=== PATIENT | male | born 1945 | race Caucasian/White ===

== ENCOUNTER 2019-05-15 06:26 | Day surgery (SDC) | payer OTHER ==
--- OUTSIDE RECORDS SUMMARY | 2019-05-15 06:29 | XMS REPORT | Clinical Summary ---
:1945 Author Organization [facility] Address [address] [place] [address] Care Team Providers Name Role Phone Asked, No Pcp Primary Care Provider Unavailable Allergies Active Allergy Reactions Severity Noted Date Comments Adhesive Tape-Silicones Other (See Comments) 01/05/2018 Lisinopril 03/10/2018 Coughing fits Medications Medication Sig Dispensed Refills Start Date End Date Status clopidogrel (PLAVIX) Take 75 mg by 0 Active 75 mg tablet mouth nightly. levothyroxine Take 50 mcg 0 Active (SYNTHROID, LEVOXYL) by mouth 50 mcg tablet every morning. allopurinol Take 300 mg 0 Active (ZYLOPRIM) 300 MG by mouth tablet nightly. citalopram (CeleXA) Take 20 mg by 0 Active 20 MG tablet mouth nightly. UBIDECARENONE Take 200 mg 0 Active (COQ-10 ORAL) by mouth nightly. isosorbide Take 30 mg by 0 Active mononitrate (IMDUR) mouth 30 MG 24 hr tablet nightly. ezetimibe (ZETIA) 10 Take 10 mg by 0 Active mg tablet mouth daily. niacin 1,000 mg Take 1 tablet 0 Active tablet extended by mouth 2 release (two) times a day. furosemide (LASIX) Take 20 mg by 0 Active 20 mg tablet mouth daily. potassium chloride Take 10 mEq 0 Active (K-DUR,KLOR-CON) 10 by mouth MEQ CR tablet daily. metFORMIN Take 250 mg 0 Active (GLUCOPHAGE) 500 mg by mouth 2 tablet (two) times a day with meals. carvedilol (COREG) Take 1 tablet 60 tablet 11 03/20/2018 03/20/2019 12.5 MG tablet (12.5 mg total) by mouth 2 (two) times a day with meals. aspirin (ECOTRIN) 81 Take 1 tablet 30 tablet 11 03/21/2018 03/21/2019 MG enteric coated (81 mg total) tablet by mouth daily. atorvastatin Take 1 tablet 30 tablet 11 03/20/2018 03/20/2019 (LIPITOR) 40 MG (40 mg total) tablet by mouth nightly. minocycline Take 1 6 capsule 0 07/27/2018 07/27/2018 Discontinued (MINOCIN,DYNACIN) capsule (100 100 MG capsule mg total) by mouth 2 (two) times a day for 6 doses. minocycline Take 1 6 capsule 0 07/27/2018 07/30/2018 (MINOCIN,DYNACIN) capsule (100 100 MG capsule mg total) by mouth 2 (two) times a day for 6 doses. Active Problems Problem Noted Date AICD lead displacement 07/26/2018 Cardiac pacemaker in situ 03/15/2018 S/P CABG x 2 03/14/2018 Thrombocytopenia 03/14/2018 Postoperative anemia due to acute blood loss 03/14/2018 Acute postoperative pulmonary insufficiency 03/14/2018 Stage 3 chronic kidney disease 03/14/2018 Panda second degree AV block 03/14/2018 Coronary artery disease 03/13/2018 SSS (sick sinus syndrome) 01/05/2018 Encounters Date Type Specialty Care Team Description 07/26/2018 Anesthesia Event Procedural Lory Bertrand Cardiology 07/26/2018 Surgery Procedural Vy Olivo Insert electrode Cardiology MD Taylor pacemaker or defibrillator 07/26/2018 - Hospital Encounter Cardiology Vy Olivo Displacement of 07/27/2018 MD Taylor implantable cardioverter-defibril lator (ICD) lead, initial encounter 07/18/2018 Hospital Encounter Radiology Vy Olivo Jr., MD of cardiac electrode, subsequent encounter 07/18/2018 Transcribe Orders Access Vy Olivo Jr., MD of cardiac electrode, subsequent encounter (Primary Dx) after 05/14/2018 Social History Tobacco Use Types Packs/Day Years Used Date Former Smoker Smokeless Tobacco: Former User Alcohol Use Drinks/Week oz/Week Comments Yes occassionally Sex Assigned at Date Recorded Not on file Job Start Date Occupation Industry Not on file Not on file Not on file Travel History Travel Start Travel End No recent travel history available. Last Filed Vital Signs Vital Sign Reading Time Taken Blood Pressure 127/62 07/27/2018 7:39 AM CDT Pulse 62 07/27/2018 7:39 AM CDT Temperature 36.9 C (98.4 F) 07/27/2018 7:39 AM CDT Respiratory Rate 20 07/27/2018 7:39 AM CDT Oxygen Saturation 94% 07/27/2018 7:39 AM CDT Inhaled Oxygen Concentration - - Weight 120 kg (265 lb 6 oz) 07/26/2018 11:54 AM CDT Height 177.8 cm (5' 10") 07/26/2018 11:54 AM CDT Body Mass Index 38.08 07/26/2018 11:54 AM CDT Plan of Treatment Health Maintenance Due Date Last Done Comments COLONOSCOPY SCREENING 1993 SHINGLES VACCINES (#1) 1993 65+ PNEUMOCOCCAL VACCINE (2 of 2 - PPSV23) 2008 05/31/2017 INFLUENZA VACCINE 05/31/2019 Implants Implanted Type Area Animation Artist Device Shelf Model / Identifier Expiration Serial / Date Lot Daniela Xt Dr Mri - [id number] Cardiac Pacemaker N/A: [facility] [id number] / Implanted: Qty: 1 on 01/05/2018 by Vy Olivo Jr., MD Generators N/A [employer] / Lead, Pacemaker Atrial And Ventricular 58 Centimeter Capsure Fix Novus System - [id number] Cardiac Pacing N/A: [employer] [facility] 08/23/2019 [id number] / Implanted: 01/05/2018 (Quantity not on file) Leads or N/A USA[employer]. [id number] / Electrodes or [id number] Accessories Lead, Pacemaker Bipolar Fix Forming Atrial And Ventricular Steroid Eluting 52 Centimeter Capsure Fix Novus - [id number] Cardiac Pacing N/A: [facility] 10/27/2019 [id number] / Implanted: 01/05/2018 (Quantity not on file) Leads or N/A [employer] [id number] / Electrodes or [id number] Accessories Lead, Pacemaker Bipolar Fix Forming Atrial And Ventricular Steroid Eluting 52 Centimeter Capsure Fix Novus - [id number] Cardiac Pacing N/A: [employer] [facility] 06/09/2020 [id number] / Implanted: 07/26/2018 (Quantity not on file) Leads or N/A USA[employer]. [id number] / Electrodes or [id number] Accessories Lead Pace Immanuel Mycrdl Unipol Tmpry Streamline - [id number] Cardiovascular N/A : [employer] [place] - [id number] / Implanted: 03/13/2018 (Quantity not on file) Implants N/A CARDIAC SRGRY / Envelope Pcemkr Antbactl Fully Resorb Aigisrxr - [id number] Cardiovascular N/A: [employer] INC [id number] / Implanted: 07/26/2018 (Quantity not on file) Implants N/A / 19fr Channel Drain, Round, Silicone, Hubless, Fluted Drainage, Other N/A: [employer] 08/30/2022 [id number] / Implanted: Qty: 1 on 03/13/2018 by Sai Romero MD N/A / [id number] Clip Ligtng Weck Hemoclip Plus W/ Tape Ti Med - [id number] Medical Clips for N/A: TELEFLEX [id number] / Implanted: 03/13/2018 (Quantity not on file) Internal Use N/A MEDICAL / Clip Ligtng Weck Hemoclip Plus W/ Tape Ti Lg - [id number] Medical Clips for N /A: TELEFLEX [id number] / Implanted: 03/13/2018 (Quantity not on file) Internal Use N/A MEDICAL / [place] Perph Vasclr Ptfe 1.2x10cm 1.65mm - [id number] Vascular Graft N/A: BARD PERIPHERAL 11/27/2022 [id number] / Implanted: 03/13/2018 (Quantity not on file) N/A VASCULAR / [id number] Procedures Procedure Name Priority Date/Time Associated Diagnosis Comments POC GLUCOSE Routine 07/27/2018 7:36 Results for this AM CDT procedure are in the results section. ESTIMATED GFR Routine 07/27/2018 3:56 Results for this AM CDT procedure are in the results section. COMPREHENSIVE Routine 07/27/2018 3:56 Results for this METABOLIC PANEL AM CDT procedure are in the results section. LIPID PANEL Routine 07/27/2018 3:56 Results for this AM CDT procedure are in the results section. HEMOGLOBIN A1C Routine 07/27/2018 3:40 Results for this AM CDT procedure are in the results section. HC COMPLETE BLD COUNT Routine 07/27/2018 3:40 Results for this W/AUTO DIFF AM CDT procedure are in the results section. ECG PRE/POST OP Routine 07/27/2018 3:39 Results for this AM CDT procedure are in the results section. XR CHEST 1 VW PORTABLE STAT 07/26/2018 5:27 Results for this PM CDT procedure are in the results section. ECG 12-LEAD STAT 07/26/2018 4:59 Results for this PM CDT procedure are in the results section. EP INSERT ELECTRODE Routine 07/26/2018 4:05 Displacement of Results for this PACEMAKER OR PM CDT implantable procedure are in DEFIBRILLATOR cardioverter-defibri the results llator (ICD) lead, section. initial encounter ECG PRE/POST OP Routine 07/26/2018 12:02 Results for this PM CDT procedure are in the results section. XR CHEST 2 VW STAT 07/18/2018 12:09 Mechanical breakdown Results for this PM CDT of cardiac procedure are in electrode, the results subsequent encounter section. after 05/14/2018 Results POC glucose (07/27/2018 7:36 AM CDT) [facility] POC glucose 103 (H) 65 - 99 mg/dL [facility] DEPARTMENT OF Comment: PATHOLOGY AND [facility] Notified RN GENOMIC MEDICINE Meter ID: [id number] Red Leader: Maximo Jung Specimen Performing Organization Address City/[facility] Phone Number [facility] DEPARTMENT OF PATHOLOGY AND [address] [place] [address] GENOMIC MEDICINE Estimated GFR (07/27/2018 3:56 AM CDT) [facility] Estimated GFR 59 (A) mL/min/1.73 [facility] DEPARTMENT OF Comment: m2 PATHOLOGY AND CatergoryUnitsInterpretation GENOMIC MEDICINE G1 >=90 Normal or high G2 60-89Mildly decreased [id number] to moderately decreased X8t04-97Mbhwdfnces to severely decreased G4 15-29Severely decreased G5 <15Kidney failure The eGFR was calculated using the Chronic Kidney Disease Epidemiology Collaboration (CKD-EPI) equation. Interpretation is based on recommendations of the National Kidney Foundation-Kidney Disease Outcomes Quality Initiative (NKF-KDOQI) published in 2014. Specimen Plasma specimen Performing Organization Address City/State/Zipcode Phone Number [facility] DEPARTMENT OF PATHOLOGY AND [address] [place] [address] GENOMIC MEDICINE Lipid panel (07/27/2018 3:56 AM CDT) [facility] Cholesterol 93 <200 mg/dL [facility] DEPARTMENT OF PATHOLOGY AND GENOMIC MEDICINE Triglycerides 115 <150 mg/dL [facility] DEPARTMENT OF PATHOLOGY AND GENOMIC MEDICINE HDL cholesterol 49 >40 mg/dL [facility] DEPARTMENT OF PATHOLOGY AND GENOMIC MEDICINE LDL cholesterol 39Comment: Result <100 mg/dL [facility] DEPARTMENT obtained by direct OF PATHOLOGY AND LDL measurement GENOMIC MEDICINE Lipid panel SeeBelow [facility] DEPARTMENT interpretation Comment: OF PATHOLOGY AND Total Cholesterol (mg/dL) GENOMIC MEDICINE <200 Desirable 959-070Vnyusmwjia-ntyj >=240High Triglycerides (mg/dL) <150 Normal 202-133Ikdfwkhjos-ypqa 200-499High >=500Very high HDL Cholesterol (mg/dL) <40Low (male) <40Low (female) LDL Cholesterol (mg/dL) <100 Optimal 100-129Near or above optimal 828-592Rmcqjpridl-esbz 160-189High >=190Very high Risk Catergories that modify LDL goals. Risk CatergoriesLDL goal (mg/dL) CHD and CHD risk equivalent<100 (10-year risk >20%) Multiple (2+) risk factors <130 (10-year risk=<20%) 0-1 risk factors <160 (<10-year risk) Defining levels of lipids in metabolic syndrome Triglycerides>=150 mg/dL HDL Cholesterol Men<40 mg/dL Women<40 mg/dL Non-HDL cholesterol is a second target for therapy in persons with high triglycerides (>=200 mg/dL) Specimen Plasma specimen Performing Organization Address City/State/Zipcode Phone Number [facility] DEPARTMENT OF PATHOLOGY AND [address] [place] [address] GENOMIC MEDICINE Comprehensive metabolic panel (07/27/2018 3:56 AM CDT) Sodium 143 135 - 148 [facility] DEPARTMENT OF mEq/L PATHOLOGY AND GENOMIC MEDICINE Potassium 4.4 3.5 - 5.0 [facility] DEPARTMENT OF mEq/L PATHOLOGY AND GENOMIC MEDICINE Chloride 105 98 - 112 mEq/L [facility] DEPARTMENT OF PATHOLOGY AND GENOMIC MEDICINE CO2 24 24 - 31 mEq/L [facility] DEPARTMENT OF PATHOLOGY AND GENOMIC MEDICINE Anion gap 14@ANIO 7 - 15 mEq/L [facility] DEPARTMENT OF PATHOLOGY AND GENOMIC MEDICINE BUN 27 (H) 8 - 23 mg/dL [facility] DEPARTMENT OF PATHOLOGY AND GENOMIC MEDICINE Creatinine 1.20 0.70 - 1.20 [facility] DEPARTMENT OF mg/dL PATHOLOGY AND GENOMIC MEDICINE Glucose 104 (H) 65 - 99 mg/dL [facility] DEPARTMENT OF PATHOLOGY AND GENOMIC MEDICINE Calcium 8.8 8.8 - 10.2 [facility] DEPARTMENT OF mg/dL PATHOLOGY AND GENOMIC MEDICINE Protein 6.1 (L) 6.3 - 8.3 g/dL [facility] DEPARTMENT OF Comment: PATHOLOGY AND 4.6-7.0 g/dL GENOMIC MEDICINE 1 week 4.4-7.6 g/dL 7 months-1year5.1-7.3 g/dL 1-2 years5.6-7.5 g/dL >3 years6.0-8.0 g/dL 18-150 6.3-8.3 g/dL Albumin 3.2 (L) 3.5 - 5.0 g/dL [facility] DEPARTMENT OF PATHOLOGY AND GENOMIC MEDICINE A/G ratio 1.1 0.7 - 3.8 [facility] DEPARTMENT OF PATHOLOGY AND GENOMIC MEDICINE Alkaline phosphatase 81 40 - 129 U/L [facility] DEPARTMENT OF PATHOLOGY AND GENOMIC MEDICINE AST 28 10 - 50 U/L [facility] DEPARTMENT OF PATHOLOGY AND GENOMIC MEDICINE ALT 24 5 - 50 U/L [facility] DEPARTMENT OF PATHOLOGY AND GENOMIC MEDICINE Total bilirubin 0.5 0.0 - 1.2 [facility] DEPARTMENT OF mg/dL PATHOLOGY AND GENOMIC MEDICINE Specimen Plasma specimen Performing Organization Address City/State/Zipcode Phone Number [facility] DEPARTMENT OF PATHOLOGY AND [address] [place] [address] [facility] MEDICINE CBC with platelet and differential (07/27/2018 3:40 AM CDT) WBC 6.12 4.50 - 11.00 [facility] DEPARTMENT OF k/uL PATHOLOGY AND GENOMIC MEDICINE RBC 4.68 4.40 - 6.00 [facility] DEPARTMENT OF m/uL PATHOLOGY AND GENOMIC MEDICINE HGB 13.9 (L) 14.0 - 18.0 [facility] DEPARTMENT OF g/dL PATHOLOGY AND GENOMIC MEDICINE HCT 43.0 41.0 - 51.0 % [facility] DEPARTMENT OF PATHOLOGY AND GENOMIC MEDICINE MCV 91.9 82.0 - 100.0 [facility] DEPARTMENT OF fL PATHOLOGY AND GENOMIC MEDICINE MCH 29.7 27.0 - 34.0 [facility] DEPARTMENT OF pg PATHOLOGY AND GENOMIC MEDICINE MCHC 32.3 31.0 - 37.0 [facility] DEPARTMENT OF g/dL PATHOLOGY AND GENOMIC MEDICINE RDW - SD 51.5 37.0 - 55.0 [facility] DEPARTMENT OF fL PATHOLOGY AND GENOMIC MEDICINE MPV 9.9 8.8 - 13.2 fL [facility] DEPARTMENT OF PATHOLOGY AND GENOMIC MEDICINE Platelet count 139 (L) 150 - 400 [facility] DEPARTMENT OF k/uL PATHOLOGY AND GENOMIC MEDICINE Nucleated RBC 0.00 /100 WBC [facility] DEPARTMENT OF PATHOLOGY AND GENOMIC MEDICINE Neutrophils 66.3 39.0 - 69.0 % [facility] DEPARTMENT OF PATHOLOGY AND GENOMIC MEDICINE Lymphocytes 17.6 (L) 25.0 - 45.0 % [facility] DEPARTMENT OF PATHOLOGY AND GENOMIC MEDICINE Monocytes 10.9 (H) 0.0 - 10.0 % [facility] DEPARTMENT OF PATHOLOGY AND GENOMIC MEDICINE Eosinophils 4.1 0.0 - 5.0 % [facility] DEPARTMENT OF PATHOLOGY AND GENOMIC MEDICINE Basophils 0.8 0.0 - 1.0 % [facility] DEPARTMENT OF PATHOLOGY AND GENOMIC MEDICINE Immature granulocytes 0.3Comment: 0.0 - 1.0 % [facility] DEPARTMENT OF "Immature PATHOLOGY AND granulocytes" GENOMIC MEDICINE (promyelocytes , myelocytes, metamyelocytes ) Specimen Blood Performing Organization Address City/[facility] Phone Number [facility] DEPARTMENT OF PATHOLOGY AND [address] [place], [place] [phone] GENOMIC MEDICINE Hemoglobin A1c (07/27/2018 3:40 AM CDT) Hemoglobin A1C 6.8 (H) 4.0 - 5.6 % [facility] DEPARTMENT OF Comment: PATHOLOGY AND HbA1c cutoffs for diagnosing diabetes: GENOMIC MEDICINE 4.0% - 5.6%=normal 5.7% - 6.4%=increased risk for diabetes (prediabetes) >=6.5%=diabetes Goals for glycemic control (ADA 2016) < 7.0%Target for non adults with diabetes. More or less stringent targets may be appropriate for individual patients. <7.5% Target for Children and adolescents with type 1 diabetes. Specimen Blood Performing Organization Address City/State/Zipcode Phone Number [facility] DEPARTMENT OF PATHOLOGY AND [address] [place] [phone] GENOMIC MEDICINE ECG Pre/Post Op-Tomorrow (07/27/2018 3:39 AM CDT)Only the most recent of2 resultswithin the time period is included. Ventricular rate 62 [facility] Atrial rate 62 [facility] OR interval 188 [facility] QRSD interval 188 [facility] QT interval 512 [facility] QTC interval 519 [facility] P axis 1 51 [facility] QRS axis 1 -89 [facility] T wave axis 78 [facility] EKG impression Electronic ventricular [facility] MUSE pacemaker-In automated comparison with ECG of 26-JUL-2018 16:59,-Vent. rate has increased BY 2 BPM- Specimen Performing Organization Address [facility]d Phone Number [facility] MUSE [address] [place] [address] XR Chest 1 Vw Portable (07/26/2018 5:27 PM CDT) Specimen Narrative Performed At EXAMINATION:XR CHEST 1 VW PORTABLE [facility] CLINICAL HISTORY:s p pacemaker lead revision COMPARISON:To a previous examination from 07/18/2018 IMPRESSION: Changes related midline sternotomy noted, transvenous pacemaker present. The heart and pulmonary vessels are prominent. The lungs are clear. [facility]-[id number] Procedure Note Hm Interface, Radiology Results Incoming - 07/26/2018 5:31 PM CDT EXAMINATION: XR CHEST 1 VW PORTABLE CLINICAL HISTORY: s p pacemaker lead revision COMPARISON: To a previous examination from 07/18/2018 IMPRESSION: Changes related midline sternotomy noted, transvenous pacemaker present. The heart and pulmonary vessels are prominent. The lungs are clear. [facility]-[id number] Performing Organization Address [facility] Phone Number [facility] [address] [place] [address] ECG 12 lead (07/26/2018 4:59 PM CDT) Ventricular rate 60 [facility] Atrial rate 60 [facility] OR interval 170 [facility] QRSD interval 188 [facility] QT interval 514 [facility] QTC interval 514 [facility] P axis 1 -9 [facility] QRS axis 1 267 [facility] T wave axis 91 [facility] EKG impression AV dual-paced [facility] rhythm-Abnormal ECG-In automated comparison with ECG of 26-JUL-2018 12:02,-Vent. rate has decreased BY 8 BPM- Specimen Performing Organization Address City/[facility] Phone Number [facility] [address] [place] [address] Cv electrophysiology procedure (07/26/2018 4:05 PM CDT) Specimen Narrative Performed At TITLE OF THE PROCEDURE: HM KATHERIN Revision of atrial pacing lead. PREOPERATIVE DIAGNOSES: 1.Complete heart block. 2.Ventricular asystole secondary to #1. 3.Remote coronary artery disease. 4.Atrial lead dislodgement, status post bypass surgery. POSTOPERATIVE DIAGNOSES: 1.Complete heart block. 2.Ventricular asystole secondary to #1. 3.Remote coronary artery disease. 4.Atrial lead dislodgement, status post bypass surgery. PROCEDURES PERFORMED: 1.Removal of atrial lead. 2.Insertion of new atrial lead. 3.Monitored anesthesia care. BRIEF HISTORY AND CLINICAL BACKGROUND: This is a 72-year-old man who had pacemaker placed in December of this year. Two months later, he had bypass surgery, but after bypass surgery, his atrial lead was dislodged.He recovered from his bypass surgery and he came to my office and we discussed revising his atrial lead.He consented to the procedure and he comes now for it. PROCEDURE IN DETAIL: The patient was taken to the EP lab in the fasting nonsedated drug-free state. Informed consent had been obtained and reconfirmed.Intravenous antibiotics were infused.He was prepped and draped in the usual sterile fashion. Utilizing 1% lidocaine solution, scalpel, cautery and blunt dissection, the preexisting pacemaker was removed from the pocket and the atrial lead was released from the header.The patient is pacemaker dependent, hence the ventricular lead was left in the pacemaker.The atrial lead was then freed from its capsular attachments around the suture collar and active fixation mechanism was withdrawn under fluoroscopy.We attempted to exercise this screw and mechanism by screwing it in by moving it in and out utilizing its rotational tool.It did so albeit reluctantly we attempted to place it into the atrium and we could be uncertain of its active fixation due to the inability to obtain a current of injury.Hence, the lead was removed from the endovascular space and utilizing standard Seldinger technique, an access to the left subclavian vein was achieved and a new lead was placed, deployed, tested and secured.The pocket was washed with copious amount of antibiotic impregnated saline and the new lead was connected to the header of the device.The set screw was tightened and the lead was torque tested.The entire system was then placed within TYRX antibiotic patch and placed back in the pocket and the pocket was closed in layers. COMPLICATIONS: None. FINDINGS: 1.The pacemaker placed on January 05, 2018 is a Medtronic [place] XT DR model W1DR01, serial number [id number]. 2.The new atrial lead is a Medtronic 5076, serial number [id number]. Measured P-wave 4.1 millivolt, pacing threshold 0.5 volt, impedance 628 ohms. 3.The chronic RV lead placed January 05, 2018 is a Medtronic 5076, serial number [id number].No intrinsic sensing threshold, pacing threshold 0.7 volt, impedance 437 ohms. 4.Estimated blood loss, less than 5 mL. CONCLUSION: Successful explantation and reimplantation of a new atrial lead in this patient with a prior dislodged atrial lead, which occurred during bypass surgery. RECOMMENDATION: Admit for observation and discharge home in the morning. Performing Organization Address [facility] Phone Number [facility] [address] [place] [address] XR Chest 2 Vw (07/18/2018 12:09 PM CDT) Specimen Narrative Performed At EXAMINATION:XR CHEST 2 VW [facility] CLINICAL HISTORY:T82.110D Breakdown (mechanical) of cardiac electrodesubsequent encounter, t82.110d COMPARISON:03/18/2018. FINDINGS: LUNGS: Bilateral peribronchial vascular thickening, increased since prior exam. No confluent consolidation.. HEART:Median sternotomy and CABG. Pacemaker leads project in expected position. Heart size is normal.. PLEURA: No evidence for pleural effusion or pneumothorax.. IMPRESSION:Small airways disease. Pacemaker leads project in stable position. [facility]-[id number] Procedure Note Interface, Radiology Results Incoming - 07/18/2018 12:16 PM CDT EXAMINATION: XR CHEST 2 VW CLINICAL HISTORY: T82.110D Breakdown (mechanical) of cardiac electrode subsequent encounter, t82.110d COMPARISON: 03/18/2018. FINDINGS: LUNGS: Bilateral peribronchial vascular thickening, increased since prior exam. No confluent consolidation.. HEART: Median sternotomy and CABG. Pacemaker leads project in expected position. Heart size is normal.. PLEURA: No evidence for pleural effusion or pneumothorax.. IMPRESSION: Small airways disease. Pacemaker leads project in stable position. [facility]-[id number] Performing Organization Address [facility] Phone Number [facility] [address] [place] [address] after 05/14/2018 Insurance Payer Benefit Plan / Subscriber ID Effective Dates Phone Address Type Group HUMANA MEDICARE HUMANA MEDICARE xxxxxxxxx 2017-Present PPO PPO/PFFS/ERS [facility] Advance Directives Patient has advance care planning documents on file. For more information, please contact:Jemal Mae[address] [place] [address]
[2019-05-15] MEDS ORDERED: Ringers Lactate 1,000 ML IV ONE (06:47)
[2019-05-15] MEDS ORDERED: PROPOFOL 200 MG/20 ML VIAL IV ONE (07:54)
[2019-05-15] MEDS ORDERED: LIDOCAINE 1% MPF 5 ML VIAL ONE (07:54)
[2019-05-15] MEDS ORDERED: NS 0.9% VIAL 10 ML ONE (08:04)
[2019-05-15] MEDS ORDERED: Phenylephrine HCl 10 MG/ML 1 ML VIAL ONE (08:04)
--- NOTE | 2019-05-15 08:34 | ENDO RPT ---
[address], [address] COLONOSCOPY PROCEDURE REPORT EXAM DATE: 05/15/2019 PATIENT NAME: Yehuda Lockwood MR #: [id number] BIRTHDATE: 1945 ATTENDING: Yehuda Raymundo Dr STATUS: outpatient EXTENSION COURSE COORDINATOR: Alyssa Little, Jimbo Philip RN, and Ayanna Vigil RN INDICATIONS: The patient is a 73 yr old Male here for a colonoscopy due to hematochezia and hemoccult positive stools PROCEDURE PERFORMED: Colonoscopy with snare polypectomy, Colon w/ endoclip, and Colonoscopy with biopsy - cold polypectomy MEDICATIONS: Per Anesthesia. ESTIMATED BLOOD LOSS: None CONSENT: The patient understands the risks and benefits of the procedure and understands that these risks include, but are not limited to: sedation, allergic reaction, infection, perforation and/or bleeding. Alternative means of evaluation and treatment include, among others: physical exam, x-rays, and/or surgical intervention. The patient elects to proceed with this endoscopic procedure. DESCRIPTION OF PROCEDURE: During intra-op preparation period all mechanical medical equipment was checked for proper function. Hand hygiene and appropriate measures for infection prevention was taken. Procedure, possible complications, alternatives including, but not limited to possibility of bleeding, perforation, tear, infection, sepsis, need for surgery, need for blood transfusion, were explained to the patient. After the risks, benefits and alternatives of the procedure were thoroughly explained, Informed consent was verified, confirmed and timeout was successfully executed by the treatment team. The patient was placed in the left lateral position. A digital rectal exam was performed and revealed no abnormalities of the rectum. After appropriate level of anesthesia, the scope was passed. The EC-[id number] ([id number]) endoscope was introduced through the anus and advanced to the cecum, which was identified by both the appendix and ileocecal valve. The quality of the prep was good. The instrument was then slowly withdrawn as the colon was fully examined. Scope withdrawal time was 12 minutes. COLON FINDINGS: A sessile polyp measuring 1.2 cm in size with a friable surface was found in the ascending colon. A polypectomy was performed. A polypectomy was performed using snare cautery. The wound at the site was closed by placing hemoclips. One (1) placement was made. There was minimal blood loss from maneuver subsiding by end of procedure. One (1) placement was made. There was minimal blood loss from maneuver subsiding by end of procedure. A smooth pedunculated polyp measuring 9 mm in size was found in the ascending colon. A polypectomy was performed using snare cautery. A smooth sessile polyp measuring 3 mm in size was found at the hepatic flexure. A polypectomy was performed with cold forceps. A smooth sessile polyp measuring 6 mm in size was found in the proximal transverse colon. A polypectomy was performed with a cold snare. There was mild diverticulosis noted in the sigmoid colon with associated angulation. No bleeding was noted from the diverticulosis. Small internal hemorrhoids were found. Retroflexed views revealed small hemorrhoids. The scope was then completely withdrawn from the patient and the procedure terminated. ADVERSE EVENTS: There were no complications. IMPRESSIONS: 1. 1.2 cm sessile polyp in the ascending colon; polypectomy was performed; polypectomy was performed in a piecemeal fashion using snare cautery; the wound at the site was closed by placing hemoclips X1 2. 9 mm pedunculated polyp in the ascending colon; polypectomy was performed using snare cautery 3. 3 mm sessile polyp at the hepatic flexure; polypectomy was performed with cold forceps 4. 6 mm flat polyp in the proximal transverse colon; polypectomy was performed with a cold snare 5. Mild diverticulosis in the sigmoid colon 6. Small internal hemorrhoids 7. Intubation to cecum RECOMMENDATIONS: 1. await biopsy results 2. avoid NSAIDS for 2 weeks RECALL: Return in 1 year(s) for Colonoscopy. Yehuda Raymundo Dr eSigned: Yehuda Raymundo Dr 05/15/2019 8:33 AM cc: CPT CODES: ICD9 CODES: 211.3 Benign neoplasm of colon PATIENT NAME: Yehuda Lockwood MR#: [id number]
== END 2019-05-15 08:55 | disposition home or self-care (01) ==
LOC: OR 06:26
PROVIDERS: ATTEND Internal Medicine Gastroenterology
PROC: 0DBL8ZX Excision of Transverse Colon, Via Natural or Artificial Opening Endoscopic, Diagnostic (ICD-10-PCS; 2019-05-15)
PROC: 0DBL8ZX Excision of Transverse Colon, Via Natural or Artificial Opening Endoscopic, Diagnostic (ICD-10-PCS; 2019-05-15)
PROC: 0DBK8ZX Excision of Ascending Colon, Via Natural or Artificial Opening Endoscopic, Diagnostic (ICD-10-PCS; principal; 2019-05-15 07:30)
DX: D12.2 Benign neoplasm of ascending colon (principal); D12.3 Benign neoplasm of transverse colon; K63.5 Polyp of colon; K57.30 Diverticulosis of large intestine without perforation or abscess without bleeding; K64.8 Other hemorrhoids; I10 Essential (primary) hypertension; I25.2 Old myocardial infarction; M10.9 Gout, unspecified; Z79.82 Long term (current) use of aspirin; Z79.899 Other long term (current) drug therapy; Z87.891 Personal history of nicotine dependence
CPT/HCPCS: 45385; 45380; 88305; J2704; J2370